=== PATIENT | female | born 1965 | race African-American/Black ===

== ENCOUNTER 2020-04-08 16:31 | Observation (INO) ==
[2020-04-08] MEDS ORDERED: NS 1000 ML 1,000 ML ONE (18:05)
[2020-04-08] MEDS ORDERED: ZOFRAN INJ 4 MG VIAL ONE (18:11)
[2020-04-08] MEDS ORDERED: ZOFRAN INJ 4 MG VIAL IVP ONE (18:16)
[2020-04-08] MEDS ORDERED: NS 1000 ML 1,000 ML IV ONE (18:16)
[2020-04-08 18:40] LABS: BASOPHILS # (AUTO) 0.1 X10^3/uL (0.0-0.1); EOSINOPHILS % (AUTO) 0.5 % (0.9-2.9); HEMATOCRIT 40.9 % (36.0-47.0); LYMPHOCYTES # (AUTO) 2.2 X10^3/uL (1.3-2.9); LYMPHOCYTES % (AUTO) 23.5 % (21.0-51.0); MEAN CORPUSCULAR HEMOGLOBIN 32.3 pg (27.0-34.0); MEAN CORPUSCULAR HGB CONC 34.2 g/dL (33.0-35.0); MEAN CORPUSCULAR VOLUME 94.3 fL (80.0-100.0); MONOCYTES # (AUTO) 0.8 x10^3/uL (0.3-0.8); MONOCYTES % (AUTO) 8.5 % (0.0-13.0); NEUTROPHILS # (AUTO) 6.1 x10^3/uL (2.2-4.8); NEUTROPHILS % (AUTO) 66.5 % (42.0-75.0); PLATELET COUNT 447 X10^3/uL (150.0-450.0); RED BLOOD COUNT 4.33 X10^6/uL (3.5-5.4); RED CELL DISTRIBUTION WIDTH 14.2 % (11.6-16.5); WHITE BLOOD COUNT 9.2 X10^3/uL (3.6-10.0)
[2020-04-08 18:49] LABS: ALANINE AMINOTRANSFERASE 20 Units/L (12-78); ALBUMIN 4.4 g/dL (3.4-5.0); ALKALINE PHOSPHATASE 59 Units/L (46-116); ASPARTATE AMINO TRANSFERASE 17 Units/L (15-37); BLOOD UREA NITROGEN 23 mg/dL (7-18); CARBON DIOXIDE 31.2 mmol/L (21-32); CHLORIDE 98 mmol/L (98-107); CREATININE 2.35 mg/dL (0.55-1.02); LIPASE 120 Units/L (73-393); SODIUM 142 mmol/L (136-145); TOTAL PROTEIN 9.2 g/dL (6.4-8.2); eGFR NON BLACK RACES 23 (>60)
--- NOTE | 2020-04-08 19:14 | DR.NAUSEAF ---
HPI Time Seen Time Seen by Provider: 04/08/20 17:58 Primary Care Physician Primary Care Physician: lori HPI Comment HPI Comment: C/O Recurrent nausea, low volume vomiting / spitting, and PO intolerance x 1 week, doesn't remember the last time she urinated or had a bowel movement. Recurrence of these symptoms x 5 years. Last endoscopy at [facility] in 2016, and last barium swallow 2016 at [facility]. Doesn't know a diagnosis to explain the symptoms. Mentioned that during a previous admission at [facility] (approx. 2017) she was told that, "my kidneys are screaming for help." She doesn't know her kidney function baseline. LMP 2 years ago. Complaints Chief Complaint:: pt stated she has been vomiting, neausea,spitting, not eating or drinking in a weak and has not pooped in a week.has been in several hospitals and been to several ers and she still has the problems. pt was at [facility] 3 years ago COVID-19 Coronavirus risk:travel/contact w/high risk person: No Has patient experienced Coronavirus symptoms: No Source History Provided: Patient Mode of Arrival Mode of Arrival: Ambulatory Timing Onset of Chief Complaint: 04/04/16 PMH PMH Past Medical History: Yes Past Medical History: GERD and Hypertension Past Surgical History: Yes Surgical History: and Other Past Surgical History Comment: hernia Family History History of Family Medical Conditions: No Social History Does patient currently use any type of tobacco product: No Have you used tobacco products in the last 12 months: No Type of Tobacco Use: None Does any household member use tobacco: No Alcohol Use: None Do you use any recreational Drugs:: No Lives With: Family Lives Where: Home Travel Risk Coronavirus risk:travel/contact w/high risk person: No Has patient experienced Coronavirus symptoms: No Infectious screening In the last 2 months have you had wt loss of >10#?: NO Have you had fever, night sweats or hemotysis?: No Have you traveled outside the country in the last 6 months?: No Isolation: Standard ROS Review of Systems Constitutional: No Symptoms Reported Eyes: No Symptoms Reported ENTM: No Symptoms Reported Respiratoy: No Symptoms Reported Cardiovascular: No Symptoms Reported Gastrointestinal/Abdominal: No Symptoms Reported Genitourinary: No Symptoms Reported Neurological: No Symptoms Reported Musculoskeletal: No Symptoms Reported Integumentary: No Symptoms Reported Hematologic/Lymphatic: No Symptoms Reported Endocrine: No Symptoms Reported Psychiatric: No Symptoms Reported All Other Systems: Reviewed and Negative PE Vital Signs Vitals: Temperature 98.0 F Pulse Rate 112 Respiratory Rate 18 Blood Pressure 158/97 O2 Sat by Pulse Oximetry 99 General Limitations: No Limitations General Appearance: Alert and In No Apparent Distress Head Head Exam: Normal Inspection Eyes Eye exam: Normal Appearance ENT ENT Exam: Normal Exam Neck Neck Exam: Normal Inspection Chest Chest Inspection: Normal Inspection Respiratory Respiratory Exam: Normal Lung Sounds Bilat Respiratory Exam: Bilateral: Clear to Auscultation Cardiovascular Cardiovascular Exam: Regular Rate and Normal Rhythm Abdominal Exam Abdominal Exam: Normal Inspection, Normal Bowel Sounds and Soft Rectal Rectal Exam: Deferred External Exam: Female: Deferred : Speculum Exam (Female): Deferred : Bimanual Exam (female): Deferred Extremities Extremities Exam: Normal Inspection Back Back Exam: Normal Inspection Neurologic Neurological Exam: Alert and Oriented X3 Psychiatric Psychiatric Exam: Normal Affect and Normal Mood Skin Skin Exam: Warm, Dry, Intact and Normal Color COURSE Treatment Treatment: Patient with Creatinine of 2.31, unclear if chronic or acute, suspect acute due to dehydration. Will admit for rehydration and optimization of renal function prior to CT abdomen/pelvis with contrast for her abdominal symptoms. Discussed the case with Dr. Trimble who agrees with this plan. ROR Labs Reviewed Result Diagrams: 04/08/20 18:32 04/08/20 18:32 Laboratory: WBC 9.2 X10^3/uL (3.6-10.0) 04/08/20 18: RBC 4.33 X10^6/uL (3.5-5.4) 04/08/20 18:32 Hgb 14.0 g/dL (12.0-16.0) 04/08/20 18:32 Hct 40.9 % (36.0-47.0) 04/08/20 18:32 MCV 94.3 fL (80.0-100.0) 04/08/20 18:32 MCH 32.3 pg (27.0-34.0) 04/08/20 18: MCHC 34.2 g/dL (33.0-35.0) 04/08/20 18: RDW 14.2 % (11.6-16.5) 04/08/20 18:32 Plt Count 447 X10^3/uL (150.0-450.0) 04/08/20 18:32 MPV 9.0 fL (7.4-11.0) 04/08/20 18:32 Neut % (Auto) 66.5 % (42.0-75.0) 04/08/20 18:32 Lymph % (Auto) 23.5 % (21.0-51.0) 04/08/20 18:32 [place] % (Auto) 8.5 % (0.0-13.0) 04/08/20 18:32 Eos % (Auto) 0.5 % (0.9-2.9) L 04/08/20 18: Baso % (Auto) 1.0 % (0.2-1.0) 04/08/20 18: Neut # (Auto) 6.1 x10^3/uL (2.2-4.8) H 04/08/20 18:32 Lymph # (Auto) 2.2 X10^3/uL (1.3-2.9) 04/08/20 18:32 [place] # (Auto) 0.8 x10^3/uL (0.3-0.8) 04/08/20 18:32 Eos # (Auto) 0.0 x10^3/uL (0.0-0.2) 04/08/20 18: Baso # (Auto) 0.1 X10^3/uL (0.0-0.1) 04/08/20 18: Absolute Nucleated RBC 0.1 /100WBC 04/08/20 18:32 Sodium 142 mmol/L (136-145) 04/08/20 18:32 Corrected Sodium TNP 04/08/20 18:32 Potassium 3.1 mmol/L (3.5-5.1) L 04/08/20 18:32 Chloride 98 mmol/L (98-107) 04/08/20 18:32 Carbon Dioxide 31.2 mmol/L (21-32) 04/08/20 18:32 BUN 23 mg/dL (7-18) H 04/08/20 18:32 Creatinine 2.35 mg/dL (0.55-1.02) H 04/08/20 18:32 Est GFR (MDRD) Af Amer 28 (>60) L 04/08/20 18:32 Est GFR (MDRD) Non-Af 23 (>60) L 04/08/20 18:32 Glucose 108 mg/dL (65-99) H 04/08/20 18:32 Calcium 10.0 mg/dL (8.5-10.1) 04/08/20 18:32 Corrected Calcium TNP 04/08/20 18:32 Total Bilirubin 0.50 mg/dL (0.2-1.0) 04/08/20 18:32 AST 17 Units/L (15-37) 04/08/20 18:32 ALT 20 Units/L (12-78) 04/08/20 18:32 Alkaline Phosphatase 59 Units/L (46-116) 04/08/20 18:32 Total Protein 9.2 g/dL (6.4-8.2) H 04/08/20 18:32 Albumin 4.4 g/dL (3.4-5.0) 04/08/20 18:32 Globulin 4.8 g/dL (2.5-4.5) H 04/08/20 18:32 Albumin/Globulin Ratio 0.9 Ratio (1.1-2.1) L 04/08/20 18:32 Lipase 120 Units/L (73-393) 04/08/20 18:32 EKG [place]: Normal Rhythm: NSR Block: None Hypertrophy: None ST: Normal Opioid Opioid Risk Tool Age (Arie box if 16-45): No History of Preadolescent Sexual Abuse: No Total: 0 Total Score Risk Category: Low Risk Copyright: Jj JAMESON predicting aberrant behaviors
[2020-04-08] MEDS ORDERED: MAALOX or MYLANTA PO PRN (23:13)
[2020-04-08] MEDS ORDERED: REGLAN INJ 10 MG VIAL IV PRN (23:26)
[2020-04-08] MEDS ORDERED: ZOFRAN INJ 4 MG VIAL IVP PRN (23:26)
[2020-04-09] MEDS: NS + KCL 40 MEQ/L 1,000 ML IV SCH ×5 (00:20→16:46)
--- NOTE | 2020-04-09 03:05 | RAD ---
STUDY: SINGLE VIEW OF THE ABDOMENCOMPARISON: NoneHISTORY: ABD PAIN, N/VFINDINGS:Bowel gas pattern is nonobstructive.There is no gross evidence of free air in the abdomen.There are no abnormal masses or calcification seen.The visualized bones demonstrate degenerative changes.IMPRESSION:1. THE BOWEL GAS PATTERN IS NONOBSTRUCTIVE.Electronically signed by: Raji Forte (Apr 09, 2020 03:03:41)
[2020-04-09 06:16] LABS: BILIRUBIN,URINE NEGATIVE (NEGATIVE); BLOOD/HEMOGLOBIN,URINE NEGATIVE (NEGATIVE); GLUCOSE, URINE NEGATIVE (NEGATIVE); KETONES,URINE 3+ (NEGATIVE); LEUKOCYTE ESTERASE ,URINE 1+ (NEGATIVE); NITRITES,URINE NEGATIVE (NEGATIVE); PROTEIN,URINE 1+ (NEGATIVE); UROBILINOGEN,URINE 1+ (NORMAL)
[2020-04-09 06:27] LABS: APPEARANCE,URINE CLOUDY (CLEAR); COLOR,URINE YELLOW (YELLOW)
[2020-04-09 06:28] LABS: BACTERIA,URINE 1+ /HPF (NEGATIVE); RBC,URINE NONE SEEN /HPF (0-3); SQUAMOUS EPITHELIAL CELL,UR MANY /HPF (NEGATIVE)
[2020-04-09 06:54] LABS: BASOPHILS % (AUTO) 0.5 % (0.2-1.0); EOSINOPHILS # (AUTO) 0.1 x10^3/uL (0.0-0.2); EOSINOPHILS % (AUTO) 0.9 % (0.9-2.9); HEMATOCRIT 33.4 % (36.0-47.0); LYMPHOCYTES # (AUTO) 1.9 X10^3/uL (1.3-2.9); MEAN CORPUSCULAR HEMOGLOBIN 31.9 pg (27.0-34.0); MEAN CORPUSCULAR HGB CONC 33.7 g/dL (33.0-35.0); MEAN CORPUSCULAR VOLUME 94.7 fL (80.0-100.0); MEAN PLATELET VOLUME 8.6 fL (7.4-11.0); MONOCYTES # (AUTO) 0.8 x10^3/uL (0.3-0.8); MONOCYTES % (AUTO) 10.6 % (0.0-13.0); NEUTROPHILS # (AUTO) 4.4 x10^3/uL (2.2-4.8); PLATELET COUNT 349 X10^3/uL (150.0-450.0); RED BLOOD COUNT 3.53 X10^6/uL (3.5-5.4); RED CELL DISTRIBUTION WIDTH 14.1 % (11.6-16.5); WHITE BLOOD COUNT 7.2 X10^3/uL (3.6-10.0)
[2020-04-09 07:00] LABS: BLOOD UREA NITROGEN 24 mg/dL (7-18); CALCIUM 8.8 mg/dL (8.5-10.1); CARBON DIOXIDE 31.2 mmol/L (21-32); CHLORIDE 103 mmol/L (98-107); CREATININE 2.22 mg/dL (0.55-1.02); MAGNESIUM 1.8 mg/dL (1.7-2.9); SODIUM 142 mmol/L (136-145); eGFR NON BLACK RACES 25 (>60)
[2020-04-09 07:03] LABS: HEMOGLOBIN 11.3 g/dL (12.0-16.0)
[2020-04-09] MEDS: PriLOSEC PO SCH (08:38)
[2020-04-09] MEDS: LOPRESSOR TAB 50 MG PO SCH (08:38)
[2020-04-09] MEDS: SYNTHROID 100 mcg TAB PO SCH (08:38)
[2020-04-09] MEDS: NORVASC TAB 5 MG PO SCH (08:38)
[2020-04-09] MEDS ORDERED: HYDROCHLOROTHIAZIDE 12.5 MG CAP PO SCH (09:00)
[2020-04-09 10:11] VITALS: BMI 31.9
[2020-04-09] MEDS ORDERED: K-DUR TAB 20 MEQ PO ONE (10:20)
[2020-04-09] MEDS ORDERED: PHENERGAN TAB 25 MG PO PRN (10:46)
--- NOTE | 2020-04-09 10:53 | DR.H&P ---
H&P History & Physical for Day of: H&P Date: 04/09/20 Chief Complaint Chief Complaint: nausea, vomiting Allergies Allergies Allergy/AdvReac Type Severity Reaction Status Date / Time No Known Drug Allergies Allergy Verified 04/08/20 16:42 History of Present Illness History of Present Illness: Ms. Aldridge is a 54y/o female with a PMH of chronic nausea, vomiting and hypokalemia presents with worsening nausea and spit up. Patient has had these symptoms for years, evaluated by GI with EGD multiple times, last one in 2018 along with barium studies. Patient states she was not told about any abnormal findings. She takes Zofran daily. She states her nausea and vomiting worsened for the past few days and she was not able to eat much. She states she lost 20 lbs in the past 3 weeks. She is a poor historian. She is not sure when her last BM was. She denies abdominal pain, denies melena or bleeding in stool. Denies blood in vomit. She describes it as white foamy liq uid. ED work-up: Labs: K-3.1 Cr:2.35 Meds: Zofran, reglan, K replacement, IVF KUB: non-obstructive bowel gas pattern Plan: patient was initially kept NPO, she reports improvement in nausea and vomiting this AM. She states she is hungry and would like to have a soft diet and advance as tolerated. Replace K with IVF and oral. Continue Reglan, switch to Phenergan prn. Colace and milk of mag for constipation. Hgb trending down, will check anemia panel. Monitor AM labs. Past Medical History Past Medical History: GERD, Hypertension and Hypothyroidism Past Surgical History Surgical History: and Other Family History Family Medical History: Hypertension Social History Does patient currently use any type of tobacco product: No Have you used tobacco products in the last 12 months: No Type of Tobacco Use: None Does any household member use tobacco: No Alcohol Use: None Drug Use: None Medications Home Medications: No Known Drug Allergies Allergy (Verified 04/08/20 16:42) CONTINUE taking the following medications amlodipine 5 mg PO DAILY 04/08/20 [History] hydrochlorothiazide 12.5 mg PO DAILY 04/08/20 [History] levothyroxine 100 mcg PO DAILY 04/08/20 [History] metoprolol tartrate 50 mg PO DAILY 04/08/20 [History] omeprazole 40 mg PO DAILY 04/08/20 [History] ondansetron HCl 4 mg PO TID PRN 04/08/20 [History] Labs Result Diagrams: 04/09/20 05:24 04/09/20 05:24 Labs: Laboratory WBC 7.2 X10^3/uL (3.6-10.0) 04/09/20 05:24 RBC 3.53 X10^6/uL (3.5-5.4) 04/09/20 05:24 Hgb 11.3 g/dL (12.0-16.0) L D 04/09/20 05:24 Hct 33.4 % (36.0-47.0) L 04/09/20 05:24 MCV 94.7 fL (80.0-100.0) 04/09/20 05:24 MCH 31.9 pg (27.0-34.0) 04/09/20 05:24 MCHC 33.7 g/dL (33.0-35.0) 04/09/20 05:24 RDW 14.1 % (11.6-16.5) 04/09/20 05:24 Plt Count 349 X10^3/uL (150.0-450.0) 04/09/20 05:24 MPV 8.6 fL (7.4-11.0) 04/09/20 05:24 Neut % (Auto) 61.0 % (42.0-75.0) 04/09/20 05:24 Lymph % (Auto) 27.0 % (21.0-51.0) 04/09/20 05:24 [place] % (Auto) 10.6 % (0.0-13.0) 04/09/20 05:24 Eos % (Auto) 0.9 % (0.9-2.9) 04/09/20 05:24 Baso % (Auto) 0.5 % (0.2-1.0) 04/09/20 05:24 Neut # (Auto) 4.4 x10^3/uL (2.2-4.8) 04/09/20 05:24 Lymph # (Auto) 1.9 X10^3/uL (1.3-2.9) 04/09/20 05:24 [place] # (Auto) 0.8 x10^3/uL (0.3-0.8) 04/09/20 05:24 Eos # (Auto) 0.1 x10^3/uL (0.0-0.2) 04/09/20 05:24 Baso # (Auto) 0.0 X10^3/uL (0.0-0.1) 04/09/20 05:24 Absolute Nucleated RBC 0.0 /100WBC 04/09/20 05:24 Sodium 142 mmol/L (136-145) 04/09/20 05:24 Corrected Sodium TNP 04/09/20 05:24 Potassium 3.0 mmol/L (3.5-5.1) L* 04/09/20 05:24 Chloride 103 mmol/L (98-107) 04/09/20 05:24 Carbon Dioxide 31.2 mmol/L (21-32) 04/09/20 05:24 BUN 24 mg/dL (7-18) H 04/09/20 05:24 Creatinine 2.22 mg/dL (0.55-1.02) H 04/09/20 05:24 Est GFR (MDRD) Af Amer 30 (>60) L 04/09/20 05:24 Est GFR (MDRD) Non-Af 25 (>60) L 04/09/20 05:24 Glucose 80 mg/dL (65-99) 04/09/20 05:24 Calcium 8.8 mg/dL (8.5-10.1) 04/09/20 05:24 Corrected Calcium TNP 04/08/20 18:32 Magnesium 1.8 mg/dL (1.7-2.9) 04/09/20 05:24 Total Bilirubin 0.50 mg/dL (0.2-1.0) 04/08/20 18:32 AST 17 Units/L (15-37) 04/08/20 18:32 ALT 20 Units/L (12-78) 04/08/20 18:32 Alkaline Phosphatase 59 Units/L (46-116) 04/08/20 18:32 Total Protein 9.2 g/dL (6.4-8.2) H 04/08/20 18:32 Albumin 4.4 g/dL (3.4-5.0) 04/08/20 18:32 Globulin 4.8 g/dL (2.5-4.5) H 04/08/20 18:32 Albumin/Globulin Ratio 0.9 Ratio (1.1-2.1) L 04/08/20 18:32 Lipase 120 Units/L (73-393) 04/08/20 18:32 Specimen Type Clean catch urine 04/08/20 06:05 Urine Color Yellow (YELLOW) 04/08/20 06:05 Urine Appearance Cloudy (CLEAR) 04/08/20 06:05 Urine pH 5.0 (5.0 - 8.0) 04/08/20 06:05 Ur Specific [place] 1.015 (1.000-1.030) 04/08/20 06:05 Urine Protein 1+ (NEGATIVE) 04/08/20 06:05 Urine Glucose (UA) Negative (NEGATIVE) 04/08/20 06:05 Urine Ketones 3+ (NEGATIVE) 04/08/20 06:05 Urine Occult Blood Negative (NEGATIVE) 04/08/20 06:05 Urine Nitrite Negative (NEGATIVE) 04/08/20 06:05 Urine Bilirubin Negative (NEGATIVE) 04/08/20 06:05 Urine Urobilinogen 1+ (NORMAL) 04/08/20 06:05 Ur Leukocyte Esterase 1+ (NEGATIVE) 04/08/20 06:05 Urine RBC None seen /HPF (0-3) 04/08/20 06:05 Urine WBC 3-5 /HPF (0-5) 04/08/20 06:05 Ur Squamous Epith Cells Many /HPF (NEGATIVE) 04/08/20 06:05 Urine Bacteria 1+ /HPF (NEGATIVE) 04/08/20 06:05 Ur Culture Indicated? No/not indicated 04/08/20 06:05 Ur Random Sodium 21 mmol/L (40-220) L 04/09/20 06:05 Urine Opiates Screen Negative (NEG=<300) 04/08/20 06:05 Urine Methadone Screen Negative (NEG=<300) 04/08/20 06:05 Ur Barbiturates Screen Negative (NEG=<200) 04/08/20 06:05 Ur Phencyclidine Scrn Negative (NEG=<25) 04/08/20 06:05 Ur Amphetamines Screen Negative (NEG=<1000) 06/05/20 06:05 U Benzodiazepines Scrn Negative (NEG=<200) 04/08/20 06:05 Urine Cocaine Screen Negative (NEG=<300) 04/08/20 06:05 U Marijuana (THC) Screen Positive (NEG=<50) A 04/08/20 06:05 Review of Systems Constitutional: Weakness Eyes: No Symptoms Reported ENT: No Symptoms Reported Respiratory: No Symptoms Reported Cardiovascular: No Symptoms Reported Gastrointestinal: Nausea, Vomiting and Constipation Genitourinary: No Symptoms Reported Musculoskeletal: No Symptoms Reported Skin: No Symptoms Reported Neurological: No Symptoms Reported Physical Exam Vital Signs: Temperature 98.7 F Pulse Rate [Left Radial] 86 Pulse Rate 95 Respiratory Rate 18 Blood Pressure [Left Arm] 146/83 Blood Pressure 125/86 O2 Sat by Pulse Oximetry 97 Oriented: Normal Eyes: Normal Ear: Normal Nose: Normal Throat: Normal Respiratory: Clear Throughout Cardiovascular: Normal Auscultation: Bowel Sounds: Decreased Palpation: Normal Tenderness: Normal Skin: Normal Musculoskeletal: Normal Psychiatric: Normal Mood Description: Calm and Appropriate Affect: Normal Speech Pattern: Clear and Appropriate Assessment/Plan (1) Acute kidney failure: Qualifiers: Acute renal failure type: unspecified Qualified Code(s): N17.9 - Acute kidney failure, unspecified Status: Acute (2) Nausea and vomiting in adult patient: Status: Acute (3) Acute hypokalemia: Status: Acute (4) Hypothyroidism: Qualifiers: Hypothyroidism type: unspecified Qualified Code(s): E03.9 - Hypothyroidism, unspecified Status: Acute (5) HTN (hypertension): Qualifiers: Hypertension type: essential hypertension Qualified Code(s): I10 - Essential (primary) hypertension Status: Acute (6) Anemia: Qualifiers: Anemia type: unspecified type Qualified Code(s): D64.9 - Anemia, unspecified Status: Acute Review H&P Reviewed: Yes Patient was examined?: Yes
[2020-04-09] MEDS: MILK OF MAGNESIA PO SCH (14:59)
[2020-04-09] MEDS ORDERED: COLACE CAP 100 MG PO SCH (21:00)
[2020-04-10 06:31] LABS: BASOPHILS % (AUTO) 0.7 % (0.2-1.0); EOSINOPHILS # (AUTO) 0.1 x10^3/uL (0.0-0.2); HEMATOCRIT 30.3 % (36.0-47.0); HEMOGLOBIN 10.4 g/dL (12.0-16.0); LYMPHOCYTES # (AUTO) 1.8 X10^3/uL (1.3-2.9); LYMPHOCYTES % (AUTO) 33.1 % (21.0-51.0); MEAN CORPUSCULAR HEMOGLOBIN 32.4 pg (27.0-34.0); MEAN CORPUSCULAR HGB CONC 34.4 g/dL (33.0-35.0); MEAN PLATELET VOLUME 8.2 fL (7.4-11.0); MONOCYTES # (AUTO) 0.6 x10^3/uL (0.3-0.8); NEUTROPHILS % (AUTO) 54.2 % (42.0-75.0); PLATELET COUNT 281 X10^3/uL (150.0-450.0); RED BLOOD COUNT 3.22 X10^6/uL (3.5-5.4); RED CELL DISTRIBUTION WIDTH 14.1 % (11.6-16.5); WHITE BLOOD COUNT 5.5 X10^3/uL (3.6-10.0)
[2020-04-10 06:43] LABS: ALANINE AMINOTRANSFERASE 19 Units/L (12-78); ALBUMIN 3.2 g/dL (3.4-5.0); ALKALINE PHOSPHATASE 59 Units/L (46-116); ASPARTATE AMINO TRANSFERASE 18 Units/L (15-37); BLOOD UREA NITROGEN 16 mg/dL (7-18); CALCIUM 8.6 mg/dL (8.5-10.1); CARBON DIOXIDE 28.2 mmol/L (21-32); CHLORIDE 106 mmol/L (98-107); COR CA(FOR HYPOALB) 9.2 mg/dL (8.5-10.1); CREATININE 1.42 mg/dL (0.55-1.02); SODIUM 141 mmol/L (136-145); TOTAL PROTEIN 6.7 g/dL (6.4-8.2); eGFR NON BLACK RACES 41 (>60)
[2020-04-10] MEDS: PriLOSEC PO SCH (08:11)
[2020-04-10] MEDS: NORVASC TAB 5 MG PO SCH (08:11)
[2020-04-10] MEDS: LOPRESSOR TAB 50 MG PO SCH (08:11)
[2020-04-10] MEDS: SYNTHROID 100 mcg TAB PO SCH (08:11)
[2020-04-10] MEDS: MILK OF MAGNESIA PO SCH (08:12)
[2020-04-10] MEDS ORDERED: MILK OF MAGNESIA PO PRN (08:13)
[2020-04-10] MEDS ORDERED: K-DUR TAB 20 MEQ PO SCH (09:00)
[2020-04-10 09:19] VITALS: BP 163/84
--- NOTE | 2020-04-10 10:02 | W.DIS.FURT ---
Summary of Discharge Discharge Summary of Date Date of Exam: 04/10/20 Admission Date Date of Admission: 04/08/20 Admission Diagnosis Hospital Course: Ms. Aldridge is a 54y/o female with a PMH of chronic nausea, vomiting and hypokalemia presents with worsening nausea and spit up. Patient has had these symptoms for years, evaluated by GI with EGD multiple times, last one in 2018 along with barium studies. Patient states she was not told about any abnormal findings. She takes Zofran daily. She states her nausea and vomiting worsened for the past few days and she was not able to eat much. She states she lost 20 lbs in the past 3 weeks. She is a poor historian. She is not sure when her last BM was. She denies abdominal pain, denies melena or bleeding in stool. Denies blood in vomit. She describes it as white foamy liquid. ED work-up showed K-3.1 Cr:2.35. She received zofran, potassium replacement and IVF. KUB: non- obstructive bowel gas pattern. Patient continued to receive IVF with potassium. Her nausea improved and she was toelerating oral diet. Labs were monitored and K was back to normal. Renal function improved, Cr 1.45. Patient's hgb did trend down to 10.4. No active bleeding. She did have 2 MB's here. Patient was stable f or discharge. She will follow up with PCP in 1 week. It was discussed with her to see GI if she continues to have nausea. Patient will discuss with PCP. Vital Signs: Vital Signs (72 hours) 04/08/20 16:43 04/08/20 19:19 04/08/20 20:00 Temperature 98.6 F 98.0 F Pulse Rate 112 H 95 H Pulse Rate [Left Radial] Respiratory Rate 18 20 Blood Pressure 158/97 125/86 Blood Pressure [Left Arm] O2 Sat by Pulse Oximetry 99 99 04/08/20 20:59 04/09/20 00:00 04/09/20 04:00 Temperature 98.7 F 98.2 F Pulse Rate Pulse Rate [Left Radial] 92 H 98 H 94 H Respiratory Rate 20 22 18 Blood Pressure Blood Pressure [Left Arm] 131/84 130/73 O2 Sat by Pulse Oximetry 99 99 96 04/09/20 08:00 04/09/20 12:00 04/09/20 16:00 Temperature 98.7 F 98.6 F 98.4 F Pulse Rate Pulse Rate [Left Radial] 86 84 83 Respiratory Rate 18 18 20 Blood Pressure Blood Pressure [Left Arm] 146/83 133/80 139/82 O2 Sat by Pulse Oximetry 97 96 96 04/09/20 20:00 04/10/20 00:00 04/10/20 04:00 Temperature 98.6 F 97.8 F 98.1 F Pulse Rate Pulse Rate [Left Radial] 87 86 80 Respiratory Rate 21 20 20 Blood Pressure Blood Pressure [Left Arm] 127/81 142/91 142/81 O2 Sat by Pulse Oximetry 98 100 100 04/10/20 08:00 Temperature 97.9 F Pulse Rate Pulse Rate [Left Radial] 83 Respiratory Rate 20 Blood Pressure Blood Pressure [Left Arm] 163/84 O2 Sat by Pulse Oximetry 99 Labs: Laboratory Last Values WBC 5.5 X10^3/uL (3.6-10.0) 04/10/20 06:15 RBC 3.22 X10^6/uL (3.5-5.4) L 04/10/20 06:15 Hgb 10.4 g/dL (12.0-16.0) L 04/10/20 06:15 Hct 30.3 % (36.0-47.0) L 04/10/20 06:15 MCV 94.0 fL (80.0-100.0) 04/10/20 06:15 MCH 32.4 pg (27.0-34.0) 04/10/20 06:15 MCHC 34.4 g/dL (33.0-35.0) 04/10/20 06:15 RDW 14.1 % (11.6-16.5) 04/10/20 06:15 Plt Count 281 X10^3/uL (150.0-450.0) 04/10/20 06:15 MPV 8.2 fL (7.4-11.0) 04/10/20 06:15 Neut % (Auto) 54.2 % (42.0-75.0) 04/10/20 06:15 Lymph % (Auto) 33.1 % (21.0-51.0) 04/10/20 06:15 [place] % (Auto) 10.0 % (0.0-13.0) 04/10/20 06:15 Eos % (Auto) 2.0 % (0.9-2.9) 04/10/20 06:15 Baso % (Auto) 0.7 % (0.2-1.0) 04/10/20 06:15 Neut # (Auto) 3.0 x10^3/uL (2.2-4.8) 04/10/20 06:15 Lymph # (Auto) 1.8 X10^3/uL (1.3-2.9) 04/10/20 06:15 [place] # (Auto) 0.6 x10^3/uL (0.3-0.8) 04/10/20 06:15 Eos # (Auto) 0.1 x10^3/uL (0.0-0.2) 04/10/20 06:15 Baso # (Auto) 0.0 X10^3/uL (0.0-0.1) 04/10/20 06:15 Absolute Nucleated RBC 0.0 /100WBC 04/10/20 06:15 Sodium 141 mmol/L (136-145) 04/10/20 06:15 Corrected Sodium TNP 04/10/20 06:15 Potassium 3.7 mmol/L (3.5-5.1) 04/10/20 06:15 Chloride 106 mmol/L (98-107) 04/10/20 06:15 Carbon Dioxide 28.2 mmol/L (21-32) 04/10/20 06:15 BUN 16 mg/dL (7-18) 04/10/20 06:15 Creatinine 1.42 mg/dL (0.55-1.02) H 04/10/20 06:15 Est GFR (MDRD) Af Amer 50 (>60) L 04/10/20 06:15 Est GFR (MDRD) Non-Af 41 (>60) L 04/10/20 06:15 Glucose 100 mg/dL (65-99) H 04/10/20 06:15 Calcium 8.6 mg/dL (8.5-10.1) 04/10/20 06:15 Corrected Calcium 9.2 mg/dL (8.5-10.1) 04/10/20 06:15 Magnesium 1.8 mg/dL (1.7-2.9) 04/09/20 05:24 Iron 72 ug/dL (50-175) 04/09/20 11:18 Transferrin 231 mg/dL (202-364) 04/09/20 11:18 Ferritin 46 ng/mL (8-252) 04/09/20 11:18 Total Bilirubin 0.40 mg/dL (0.2-1.0) 04/10/20 06:15 AST 18 Units/L (15-37) 04/10/20 06:15 ALT 19 Units/L (12-78) 04/10/20 06:15 Alkaline Phosphatase 59 Units/L (46-116) 04/10/20 06:15 Total Protein 6.7 g/dL (6.4-8.2) 04/10/20 06:15 Albumin 3.2 g/dL (3.4-5.0) L 04/10/20 06:15 Globulin 3.5 g/dL (2.5-4.5) 04/10/20 06:15 Albumin/Globulin Ratio 0.9 Ratio (1.1-2.1) L 04/10/20 06:15 Lipase 120 Units/L (73-393) 04/08/20 18:32 Vitamin B12 915 pg/mL (193-986) 04/09/20 11:18 Folate 14.1 ng/mL (>8.6) 04/09/20 11:18 Specimen Type Clean catch urine 04/08/20 06:05 Urine Color Yellow (YELLOW) 04/08/20 06:05 Urine Appearance Cloudy (CLEAR) 04/08/20 06:05 Urine pH 5.0 (5.0 - 8.0) 04/08/20 06:05 Ur Specific [place] 1.015 (1.000-1.030) 04/08/20 06:05 Urine Protein 1+ (NEGATIVE) 04/08/20 06:05 Urine Glucose (UA) Negative (NEGATIVE) 04/08/20 06:05 Urine Ketones 3+ (NEGATIVE) 04/08/20 06:05 Urine Occult Blood Negative (NEGATIVE) 04/08/20 06:05 Urine Nitrite Negative (NEGATIVE) 04/08/20 06:05 Urine Bilirubin Negative (NEGATIVE) 04/08/20 06:05 Urine Urobilinogen 1+ (NORMAL) 04/08/20 06:05 Ur Leukocyte Esterase 1+ (NEGATIVE) 04/08/20 06:05 Urine RBC None seen /HPF (0-3) 04/08/20 06:05 Urine WBC 3-5 /HPF (0-5) 04/08/20 06:05 Ur Squamous Epith Cells Many /HPF (NEGATIVE) 04/08/20 06:05 Urine Bacteria 1+ /HPF (NEGATIVE) 04/08/20 06:05 Ur Culture Indicated? No/not indicated 04/08/20 06:05 Ur Random Sodium 21 mmol/L (40-220) L 04/09/20 06:05 Urine Opiates Screen Negative (NEG=<300) 04/08/20 06:05 Urine Methadone Screen Negative (NEG=<300) 04/08/20 06:05 Ur Barbiturates Screen Negative (NEG=<200) 04/08/20 06:05 Ur Phencyclidine Scrn Negative (NEG=<25) 04/08/20 06:05 Ur Amphetamines Screen Negative (NEG=<1000) 04/08/20 06:05 U Benzodiazepines Scrn Negative (NEG=<200) 04/08/20 06:05 Urine Cocaine Screen Negative (NEG=<300) 04/08/20 06:05 U Marijuana (THC) Screen Positive (NEG=<50) A 04/08/20 06:05 Reason For Visit: CARLOS ENRIQUE,VOMIING,HYPOKALEMIA Discharge Date Discharge Date: 04/10/20 Discharge Diagnosis All Active Problems (Updated 04/09/20 @ 10:57 by Swathi Trimble) Anemia (Acute) HTN (hypertension) (Acute) Hypothyroidism (Acute) Acute kidney failure (Acute) Nausea and vomiting in adult patient (Acute) Acute hypokalemia (Acute) Plan of Treatment: Continue with present treatment and follow up plan. Pt is to keep follow up appointment as instructed and take medications as ordered. Discharge Medications Discharge Medications: No Known Drug Allergies Allergy (Verified 04/08/20 16:42) CONTINUE taking the following medications amlodipine 5 mg PO DAILY 04/08/20 [History] hydrochlorothiazide 12.5 mg PO DAILY 04/08/20 [History] levothyroxine 100 mcg PO DAILY 04/08/20 [History] metoprolol tartrate 50 mg PO DAILY 04/08/20 [History] omeprazole 40 mg PO DAILY 04/08/20 [History] ondansetron HCl 4 mg PO TID PRN 04/08/20 [History] New Prescriptions promethazine 12.5 mg PO Q12H PRN 14 Days #28 tab 04/10/20 [Rx] Follow up and Referral Follow Up: 1 Week (PCP) Discharge Disposition Discharge Disposition: Home Discharge Condition: Stable
== END 2020-04-10 10:40 | disposition home or self-care (01) ==
LOC: MED/SURG 16:40 → ER 16:40 → MED/SURG 21:05
PROVIDERS: ADMIT Internal Medicine; ATTEND Internal Medicine
DX: I10 Essential (primary) hypertension; K21.9 Gastro-esophageal reflux disease without esophagitis; N17.8 Other acute kidney failure; E87.6 Hypokalemia; D64.89 Other specified anemias; R11.2 Nausea with vomiting, unspecified; E03.8 Other specified hypothyroidism; F12.10 Cannabis abuse, uncomplicated
CPT/HCPCS: 36415; 74000; 74018; 80048; 80053; 80307; 81001; 82607; 82728; 82746; 83540; 83690; 83735; 84132; 84300; 84466; 85025; 96360; 96361; 96365; 96374; 99284; A4222; G0378; J2405; J7030